=== PATIENT | female | born 1955 | race African-American/Black ===

== ENCOUNTER → 2017-01-03 | Outpatient (CLI) | payer OTHER ==
[~2017-01-03] MED LIST: AMLODIPINE BESY10 MG PO; ANASTROZOLE1 MG PO; APRESOLINE PO; ARTIFICIAL TEAR15 M3 OS; ASPIRIN PO; ASPIRIN81 MG PO; BENAZEPRIL PO; CLARITIN10 M1 PO; CLARITIN10 M2 PO; CLOPIDOGREL75 MG PO; DONEPEZIL HCL10 MG PO; FLAGYL PO; FLONASE 0.05% N16 G1; GLUCOPHAGE XR500 MG PO; HCTZ PO; HYDRALAZINE HCL50 MG PO; HYDROCHLOROTHIA25 MG PO; HYDROCODON-ACE1 EAC5 PO; K-DUR20 ME1 PO; KLOR-CON PO; LEVAQUIN PO; LIPITOR20 MG DOB; LIPITOR20 MG PO; LO-DOSE ASPIRIN81 M1 PO; LOPRESSOR PO; LORTAB 5/500 TA1 TA1 PO; LOTENSIN40 MG PO; METFORMIN HCL500 M1 PO; METOPROLOL TAR25 MG PO; METRONIDAZOLE PO; MOBIC15 MG PO; NORVASC10 MG PO; OMEPRAZOLE40 M1 PO; PREDNISONE PO; PRILOSEC PO; PRINIVIL20 M1 PO; SERTRALINE HCL50 M1 PO; TRAMADOL HCL50 M1 PO; VALCYTE450 MG PO; VENLAFAXINE HCL25 MG PO; VITAMIN C500 M7 PO; ZESTRIL40 MG PO; ZOCOR PO; ZOLOFT50 MG PO
--- NOTE | ~2017-01-03 | CT15 ---
[facility] A Service of [facility] & [facility] RADIOLOGY TEXT RESULTS PATIENT: PAULY BENITEZ LOCATION: CCAT : 54 UNIT #: [id number] AGE: [address]: Iglesia Gerardo MD SEX: F ORDER DR: [id number] [facility] [address] [place], [place] [address] [id number] O MR#: [id number] Acc #: [id number] NAME: PAULY BENITEZ : 1955 SEX: F STUDY DATE/TIME: 01/03/2017 11:32 UNIT: [facility] ROOM: STUDY DESCRIPTION: CT Angio Chest Attending Physician: Iglesia Gerardo M.D. Referring Physician: Iglesia Gerardo M.D. Ordering Physician: Iglesia Gerardo M.D. Primary Care Physician: Rizwana Phillip M.D. MEDICAL IMAGING REPORT This report is preliminary unless electronic signature is present EXAM CT angiogram chest, 01/03/2017 INDICATION Aortic aneurysm surgery in 2016. The patient denies any complaints a the current time. TECHNIQUE Axial CT images were obtained from the thoracic inlet through the dome of the diaphragm following the administration of intravenous contrast material. Following this 3-D reformatted images were obtained. This CT exam was performed with one or more of the following radiation dose reduction techniques: automatic exposure control, adjustment of mA and/or kV according to patient size, and iterative reconstruction. FINDINGS Comparison is made to prior study from . A thoracic aortic stent graft is seen. This extends from just distal to the common origin of the left common carotid artery and brachiocephalic artery and continues into the mid descending thoracic aorta. I do not see any convincing evidence of endoleak. 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 There is a patent left common carotid to left subclavian artery bypass. The patient has generalized arteriomegaly involving the arch vessels. Ascending thoracic aorta measures within normal size limits as does the aortic root and the descending thoracic aorta distal to the stent. I do not see any evidence of dissection on today's study. The thyroid gland and trachea appear within normal limits. There is a small hiatal hernia. There is no pleural or pericardial effusion. Mediastinal lymph nodes do not appear pathologically enlarged. There are background emphysematous changes. Scarring at the right lung [facility]. [facility] A Service of [facility] & [facility] RADIOLOGY TEXT RESULTS PATIENT: PAULY BENITEZ LOCATION: [facility] : 54 UNIT #: [id number] AGE: [address]: Iglesia Gerardo MD SEX: F ORDER DR: rupal is stable however, there is a nodular density seen within the left lower lobe which I do not clearly identified on the prior study from December 2015. It measures up to 1.0 cm x 0.9 cm. Given background emphysematous changes I would suggest short-term CT followup in 3 months or consideration for PET. No acute pulmonary thromboembolus is seen. Images through the upper abdomen do not demonstrate any acute abnormalities. Tiny low-attenuation lesion within the right kidney is favored to represent a cyst. Review of bony windows does not demonstrate any aggressive osseous abnormalities. This patient is status post left mastectomy. IMPRESSION 1. Patient is status post thoracic aortic stent grafting which extends from just distal to the common trunk for the left common carotid artery and innominate artery into the proximal to mid descending thoracic aorta. There is no evidence of endoleak and there is no evidence of dissection. The patient's aortic root, ascending thoracic aorta and distal descending thoracic aorta measure within normal size limits. 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 2. Background emphysematous changes. Patient does have a nodular density, within the left lower lobe measuring up to 1.0 cm x 0.9 cm. This is indeterminate in the setting of a patient with background emphysematous changes and may simply reflect some benign scarring but I would suggest either short-term CT followup in 3 months or consideration for PET scan. 3. Small hiatal hernia. 4. Also noted but not mentioned in the report is a replaced left hepatic artery to the left gastric artery which is a normal anatomic variant. Please see the body of the report for any other additional incidental findings. Dictated by... Krystal Blake M.D. THIS IS AN ELECTRONICALLY VERIFIED REPORT Krystal Blake M.D. at 01/04/2017 4:47 PM AFF/ljd TD: 01/03/2017 21:53 JOB #: [id number] MEDICAL IMAGING REPORT [facility] A Service of [facility] & [facility] RADIOLOGY TEXT RESULTS PATIENT: PAULY BENITEZ LOCATION: [facility] : 54 UNIT #: [id number] AGE: [address]: Iglesia Gerardo MD SEX: F ORDER DR: COPY
[2017-01-03 10:44] LABS: BLOOD UREA NITROGEN 10 mg/dL (9-23); CREATININE SERUM 0.7 mg/dL (0.6-1.4); GLOM FILT RATE Estimated ABOVE60 mL/min (>60)
== END | disposition home or self-care (01) ==
LOC: CCAT 09:33
PROVIDERS: Surgery Vascular Surgery
DX: I71.2 Thoracic aortic aneurysm, without rupture (principal); I65.23 Occlusion and stenosis of bilateral carotid arteries; I63.9 Cerebral infarction, unspecified; I77.89 Other specified disorders of arteries and arterioles; E11.9 Type 2 diabetes mellitus without complications; I10 Essential (primary) hypertension; J43.9 Emphysema, unspecified; K44.9 Diaphragmatic hernia without obstruction or gangrene; Z98.890 Other specified postprocedural states
CPT/HCPCS: 36415; 71275; 82565; 84520; Q9967

== ENCOUNTER 2017-04-16 17:17 | Inpatient (IN) | payer OTHER ==
--- NOTE | ~2017-04-16 | HP ---
Unit #: [id number] #: [id number] Patient: PAULY BENITEZ [id number] [address] [place], [place] [address] [id number] I MR#: [id number] NAME: PAULY BENITEZ ROOM: 75513 Age: 61 Sex: F Admission Date: 04/16/2017 : 1955 Attending Physician: Nam Ness M.D. Primary Care Physician: Rizwana Phillip M.D. HISTORY AND PHYSICAL CHIEF COMPLAINT Diffuse abdominal pain. HISTORY OF PRESENT ILLNESS This is a 61-year-old female with past medical history of coronary artery disease with previous stent, hypertension, dyslipidemia, diabetes, GERD, history of left breast cancer with previous left mastectomy, anxiety depression, chronic left hip pain, anemia. She presented to the emergency room with chief complaint of diffuse abdominal pain which she said has been going off and on for two months, got worse today. She feels nauseous but no vomiting, no diarrhea, no constipation, no blood in the stool, no cough, no fevers, no chest pain, no diaphoresis, no palpitations. No other complaint. In the ER, on workup, she was found to have BUN 39, creatinine 2.7; white count 13,000; UA consistent with UTI. She is evaluation with CT scan which is pending at time of dictation. PAST MEDICAL HISTORY 1. History of coronary artery disease with previous stent. 2. Hypertension. 3. Dyslipidemia. 4. Diabetes. 5. GERD. 6. History of left breast cancer with previous left mastectomy. 7. Anemia. 8. History of anxiety and depression. 9. History of chronic left hip pain. PAST SURGICAL HISTORY 1. History of ventral hernia repair. 2. Left mastectomy. 3. Cardiac catheterization with stent. HOME MEDICATIONS 1. Plavix 75 mg daily. 2. Aricept 10 mg daily. 3. Omeprazole 40 mg daily. 4. Lopressor 50 mg b.i.d. 5. Glucophage 500 mg b.i.d. 6. Aspirin 81 mg daily. 7. Lipitor 20 mg daily. 8. Sertraline 50 mg daily. 9. Tramadol 50 mg q.6 h. p.r.n. 10. Amlodipine 10 mg h.s. 11. Anastrozole 1 mg daily. Unit #: [id number] #: [id number] Patient: PAULY BENITEZ SOCIAL HISTORY She does not smoke but she says she drinks 3 or 4 times a week. She is not drinking for one week. She denies any other illicit drug use. FAMILY HISTORY No family disease pertinent to case. PHYSICAL EXAMINATION VITAL SIGNS: Temperature 98.7, heart rate 96, respiratory rate 16, blood pressure 118/62, oxygen 100%. GENERAL: Middle-aged female lying in the bed, comfortably, currently not in any distress. She is alert, awake, oriented x3. HEENT: Pupils are equal and reactive to light and accommodation. Head is normocephalic, atraumatic. NECK: Supple. No JVD. LUNGS: Clear to auscultation bilaterally. No rhonchi, no wheezing. HEART: S1, S2. Regular rate and rhythm. ABDOMEN: Soft. No guarding, no rigidity. Diffuse mild tenderness. EXTREMITIES: Normal. No cyanosis, clubbing, or edema. NEUROLOGIC: No focal neurologic deficits. Cranial nerves II-XII intact. SKIN: Normal. No rash. PSYCHIATRIC: Normal mood and affect. DIAGNOSTIC STUDIES LABORATORY: Urine drug screen is negative. UA consistent with UTI, positive leukocyte esterase, wbc's 5-10. White count 13, hemoglobin 11, hematocrit 35, platelets 198. Sodium 133, potassium 3.7, chloride 94, CO2 is 28, glucose 121, BUN 39, creatinine 2.7, LFTs within normal limits. Lipase 34. Albumin 3.8. ASSESSMENT AND PLAN 1. Diffuse upper abdominal pain. CT scan is pending at time of dictation. Will follow up CT scan and further workup after CT scan evaluation. 2. Urinary tract infection. Will start the patient on IV Rocephin. 3. Acute kidney injury. Start on IV fluids. 4. History of coronary artery disease with previous stent. 5. Hypertension. 6. Dyslipidemia. 7. Diabetes. Hold metformin. Place on sliding scale. 8. History of gastroesophageal reflux disease. Will place the patient on IV Protonix while in the hospital. 9. History of left breast cancer with previous left mastectomy. 10. History of anemia. 11. Anxiety depression. 12. Chronic left head pain, unknown trauma. 13. DVT prophylaxis. Will place the patient on Lovenox. Dictated by Priyank Keita/james Unit #: [id number] #: [id number] Patient: PAULY BENITEZ TD: 04/16/2017 23:16 JOB #: [id number] HISTORY AND PHYSICAL Page 1 of 1 X X HISTORY AND PHYSICAL
--- NOTE | ~2017-04-16 | DS ---
Unit #: [id number] #: [id number] Patient: PAULY HINTON [id number] [address] [place], [place] [address] [id number] I MR#: [id number] NAME: PAULY HINTON ROOM: 318 Age: 61 Sex: F Admission Date: 04/16/2017 : 1955 Discharge Date: 04/19/2017 Attending Physician: Grecia Schmidt M.D. Primary Care Physician: Rizwana Phillip M.D. DISCHARGE SUMMARY PRINCIPAL DIAGNOSES 1. Sepsis secondary to acute diverticulitis. 2. Acute kidney injury, prerenal. Discharge creatinine 1.3. 3. Diabetes mellitus type 2. Noninsulin requiring, controlled. 4. Hypertension. 5. Depression. 6. History of breast cancer. 7. Hyperlipidemia. 8. Gastroesophageal reflux disease. 9. Coronary artery disease, status post prior stenting. 10. Chronic left hip pain. 11. Hypokalemia. CON[facility]ULT[facility]. DIAGNOSTIC DATA IMAGING: CT scan of the abdomen and pelvis on 04/16/2017 with acute diverticulitis. There was a large diverticulum projecting from the superior aspect of the sigmoid colon measuring 3.5 cm, associated with inflammatory changes of fat stranding, haziness as noted. There was no evidence of abscess or perforation. Constipation was noted. Nodular density in the left lung base measuring 2.4 cm x 7 mm. It was benign per PET scan in 12/2016. Anterior abdominal wall mesh is noted. Right inguinal hernia with fat without complication noted. CLINICAL HISTORY/HOSPITAL COURSE Ms. Hinton is a nice 61-year-old female who presented to the emergency department with complaints of abdominal pain. Please refer to history and physical for further details. The patient underwent CT of the abdomen and pelvis in the emergency department, revealing acute diverticulitis. This was found to be in association with an elevated white blood cell count of 13,000. The patient was also found to have a creatinine of 2.7. She was subsequently admitted. The patient was placed on empiric IV fluids and antibiotics. [facility] was consulted. With antibiotic therapy the patient remained afebrile and leukocytosis has resolved. Plan is for her to continue a diet at home and on an outpatient basis proceed with follow-up colonoscopy to further evaluate this large diverticulum. In regard to the patient's acute kidney injury, with IV fluids her creatinine has improved. She unfortunately has poor oral intake at home, which I think is contributing to this. I encouraged fluid intake at home. Unit #: [id number] #: [id number] Patient: PAULY HINTON The patient did have some electrolyte abnormalities, but these have been corrected during hospitalization. The patient does admit to significant poor appetite, somnolence and depression at home. I am going to increase her dose of Zoloft and this can be followed up by Dr. Rizwana Phillip as an outpatient. DISCHARGE CONDITION Stable. DISPOSITION Discharge to home. DISCHARGE MEDICATIONS 1. Flonase 0.05% nasal spray, 2 sprays per nostril daily. 2. Zoloft 100 mg daily. 3. Metformin XR 500 mg b.i.d. 4. Anastrozole 1 mg daily. 5. Norvasc 10 mg at bedtime. 6. Metoprolol tartrate 50 mg b.i.d. 7. Donepezil 10 mg daily. 8. Lipitor 20 mg at bedtime. 9. Flagyl 500 mg p.o. t.i.d. for 7 days. 10. Aspirin 81 mg daily. 11. Tramadol 50 mg p.o. q.6 h. p.r.n. pain. 12. Plavix 75 mg daily. 13. Omeprazole 40 mg daily. 14. Levaquin 500 mg p.o. daily for 7 days. DIET The patient was instructed to follow a heart healthy diet. She should monitor her carbohydrate intake as well. She can continue Accu-Cheks as she was doing at home previously. ACTIVITY Increase as tolerated. FOLLOWUP The patient should follow up with Dr. Rizwana Phillip in four weeks and reevaluate depression. I would recommend follow-up BMP at that time to evaluate renal function and potassium. Dictated by... Grecia Schmidt M.D. Alanna TD: 04/20/2017 10:15 JOB #: [id number] Unit #: [id number] #: [id number] Patient: PAULY HINTON DISCHARGE SUMMARY Page 1 of 1 X Grecia Schmidt MD DISCHARGE SUMMARY
--- NOTE | ~2017-04-16 | CT4 ---
[facility] A Service of [facility] & [facility] RADIOLOGY TEXT RESULTS PATIENT: PAULY BENITEZ LOCATION: C3A 318- : 53 UNIT #: [id number] AGE: [address]: Grecia Schmidt MD SEX: F ORDER DR: [id number] [facility] [address] [place], [place] [address] [id number] I MR#: [id number] Acc #: [id number] NAME: PAULY BENITEZ : 1955 SEX: F STUDY DATE/TIME: 04/16/2017 20:21 UNIT: C3A PCU ROOM: 318 STUDY DESCRIPTION: CT Abd and Pelv Wo Cont Attending Physician: Grecia Schmidt M.D. Ordering Physician: Kaylene Shah M.D. Primary Care Physician: Rizwana Phillip M.D. MEDICAL IMAGING REPORT This report is preliminary unless electronic signature is present EXAM CT abdomen and pelvis, 04/16/2017 HISTORY Abdomen pain generalized 1-2 months per patient. Denies nausea, vomiting, diarrhea. Prior history of breast cancer 2013. Hypertension, diabetes, seizures. Left mastectomy, abdominal hernia. Esophageal surgery. TECHNIQUE CT abdomen and pelvis performed without administration of oral or vascular contrast. This CT exam was performed with one or more of the following radiation dose reduction techniques: automatic exposure control, adjustment of mA and/or kV according to patient size, and iterative reconstruction. COMPARISON Images from CT/PET scan, 02/07/2017 FINDINGS There is evidence of prior right rib resection with some herniation of pulmonary parenchyma. Associated subpleural scarring at this location. Please correlate with surgical history. At the left lung base there is a somewhat linear, somewhat nodular density measuring approximately 2.4 cm x 7.0 mm. Given differences in imaging technique, probably not significantly changed from prior CT/PET scan. It did not show abnormal PET tracer accumulation on the prior CT/PET scan. It does appear more pronounced than on prior CT of the chest in December 2016 when it measured about 1.7 cm x 9.0 mm. Given lack of FDG affinity on the CT/PET scan, this is probably a benign process but I would recommend continued short-interval followup in approximately 3 months. Heart normal in size. Coronary arterial calcifications. The liver, gallbladder, spleen, pancreas, adrenal glands, kidneys unremarkable. [facility] A Service of [facility] & [facility] RADIOLOGY TEXT RESULTS PATIENT: PAULY BENITEZ LOCATION: C3A 318-01 : 53 UNIT #: [id number] AGE: [address]: Grecia Schmidt MD SEX: F ORDER DR: CT PELVIS: No inguinal adenopathy. Right inguinal hernia containing only fat without complication. Urinary bladder, uterus adnexal regions notable for calcified fibroid in the uterus. No free fluid in the pelvis. There are small lymph nodes adjacent to the sigmoid colon and in the retroperitoneum likely reactive in nature. Small hiatal hernia. Remainder of visualized stomach unremarkable. Small bowel remarkable. Appendix normal. The colon shows moderate stool burden throughout its course. Extensive sigmoid diverticulosis. There is a giant diverticulum along the superior aspect of the mid sigmoid colon. It measures approximately 3.5 cm x 3.1 cm x 3.1 cm. There is inflammatory fat stranding and haziness adjacent to this diverticulum. It has increased in size from the prior CT/PET scan when it measured 2.3 cm in diameter. Inflammatory change has increased. Findings are most consistent with acute sigmoid diverticulitis. I see no free air. No abscess or drainable fluid collection. Consider surgical consultation given progression of this abnormality in the interval from February 2017. There is no colonic obstruction. There appears to be some mild mural thickening in the subjacent sigmoid colon. Please note the normal appendix rests immediately anterior to the inflamed giant diverticulum. Anterior abdominal wall mesh unchanged. There is a fat-containing hernia along the right superolateral aspect of the mesh. No complication. Atherosclerotic arterial calcifications. Degenerative bony changes. No acute abnormality. IMPRESSION 1. Findings most consistent with acute diverticulitis. There is a giant diverticulum projecting from the superior aspect of the sigmoid colon measuring up to 3.5 cm in diameter. Significantly increased in size from February 2017 when it measured about 2.3 cm in diameter. Increased diverticular inflammatory change with fat stranding and haziness in the adjacent perisigmoidal fat. The adjacent sigmoid colon shows mild mural thickening. Given progression of abnormality, surgical consultation is recommended. There is no free air. There is no drainable fluid collection or abscess suggested. Extensive sigmoid diverticulosis elsewhere. Moderate stool burden throughout the colon. 2. Appendix is normal. The normal appendix is located along the anterior aspect of the inflamed giant sigmoid diverticulum. 3. Somewhat linear somewhat nodular density at the left lung base measures 2.4 cm x 7.0 mm. While probably not significantly changed from prior CT/PET scan, it is increased in size from December 2016. It did not show FDG avidity on CT/PET scan. This would favor benign process but given slow progression of increased size, continued CT followup in 3 months is recommended. 4. Stable postoperative changes right lower thorax. See above. 5. Anterior abdominal wall mesh. Stable residual hernia along the right superolateral aspect of the mesh containing only fat without complication. 6. Right inguinal hernia containing fat without complication. 7. Not mentioned above, atherosclerotic arterial calcifications. No STS. [facility] A Service of [facility] RADIOLOGY TEXT RESULTS PATIENT: PAULY BENITEZ LOCATION: C3A 318-01 : 53 UNIT #: [id number] AGE: [address]: Grecia Schmidt MD SEX: F ORDER DR: aortic aneurysm. Dictated by... Tone Rodriguez M.D. THIS IS AN ELECTRONICALLY VERIFIED REPORT Tone Rodriguez M.D. at 04/18/2017 5:16 PM Shanika TD: 04/17/2017 08:43 JOB #: [id number] MEDICAL IMAGING REPORT Page 1 of 1 COPY
--- NOTE | ~2017-04-16 | CO ---
Unit #: [id number] #: [id number] Patient: PAULY BENITEZ [id number] [facility]. [place], [place] [address] [id number] I MR#: [id number] NAME: PAULY BENITEZ ROOM: 318 Age: 61 Sex: F Admission Date: 04/16/2017 : 1955 Attending Physician: Grecia Schmidt M.D. Primary Care Physician: Rizwana Phillip M.D. Consultation Date: 04/17/2017 CONSULTATION REPORT BRIEF SUMMARY The patient is a 61-year-old black female, who presented through the emergency room complaining of severe central abdominal pain. It is a question of whether she may have some diarrhea. She states this has been going on for several months, but over the past week had gotten very significant, bringing her to the emergency room. She is not a very good historian and apparently has some mental problems, possibly Alzheimer disease. She is on Aricept with multiple other medications. The patient has known past history for left breast cancer with left mastectomy several years ago. She has had no evidence of any recurrence. She has also had coronary artery disease with stent placed, hypertension, diabetes, gastroesophageal reflux disease, chronic hip pain. According to her, her weight stable. She also has known past history for anemia. She is on numerous medications, but no anticoagulation. FAMILY HISTORY Noncontributory. SOCIAL HISTORY The patient is single, nonsmoker, nondrinker. IMMUNIZATIONS Up-to-date. REVIEW OF SYSTEMS Ten system review has been performed on review of systems and it is not remarkable except for that noted in the present illness. PHYSICAL EXAMINATION VITAL SIGNS: The patient on admission afebrile, pulse 92. Vital signs normal. HEENT: Not remarkable. NECK: Supple. CHEST: There is equal bilateral expansion with bilateral equal breath sounds. LUNGS: Clear bilaterally. HEART: Regular rhythm without murmurs or gallops. There is no evidence of cardiomegaly clinically. ABDOMEN: Soft, mildly tender in the central portion of the abdomen with some mild distention. There is no guarding or rebound. Active bowel sounds present. No evidence of ascites or hernias. EXTREMITIES: Full range of motion without limitation. There is no evidence of peripheral edema. BACK: There is no CVA tenderness. Unit #: [id number] #: [id number] Patient: PAULY BENITEZ NEUROLOGIC: Grossly intact except the patient seems slightly confused possibly on the basis of her pain medicine. DIAGNOSTIC STUDIES LABORATORY RESULTS: White blood cell count was elevated at 13,000 on admission. IMAGING STUDIES: CT scan apparently showed acute diverticulitis, although, the reports not in the chart. IMPRESSION The patient has acute diverticulitis, which suggest IV antibiotics and observation and eventually, she will need a colonoscopy. Dictated by... Brady Briggs Jr., MBishop. ANYI/iam TD: 04/17/2017 06:58 JOB #: [id number] CONSULTATION REPORT Page 1 of 1 X Brady Briggs MD X CONSULTATION REPORT
[~2017-04-16 17:17] MED LIST changes: -AMLODIPINE BESY10 MG PO; -ASPIRIN81 MG PO; -CLOPIDOGREL75 MG PO; -DONEPEZIL HCL10 MG PO; -FLAGYL PO; -FLONASE 0.05% N16 G1; -GLUCOPHAGE XR500 MG PO; -LEVAQUIN PO; -LIPITOR20 MG PO; -METFORMIN HCL500 M1 PO; -OMEPRAZOLE40 M1 PO; -SERTRALINE HCL50 M1 PO; -TRAMADOL HCL50 M1 PO
[2017-04-16 18:52] LABS: BASOPHIL% 0.2 % (0-2.5); EOSINOPHIL# 0.2 X10e3 (0-0.7); EOSINOPHIL% 1.8 % (0.0-7.0); HEMATOCRIT 35.2 % (35.0-45.0); HEMOGLOBIN 11.8 gm/dL (12.0-16.0); LYMPHOCYTE# 1.6 X10e3 (1.0-3.5); LYMPHOCYTE% 11.9 % (17.0-45.0); MEAN CORPUSCULAR HEMOGLOBIN 31.4 PG (28-34); MEAN CORPUSCULAR HGB CONC 33.4 g/dL (30-36); MEAN PLATELET VOLUME 8.1 FL (6.5-11.5); MONOCYTE% 7.6 % (3.0-12.0); NEUTROPHIL# 10.7 X10e3 (1.5-7.1); NEUTROPHIL% 78.5 % (40-75); RED BLOOD COUNT 3.75 X10e (3.90-5.30); RED CELL DISTRIBUTION WIDTH 13.3 % (11.0-15.5); WHITE BLOOD COUNT 13.6 X10e3 (4.0-10.5)
[2017-04-16 19:01] LABS: ALBUMIN SERUM 3.8 g/dL (3.5-5.0); BILIRUBIN, DIRECT 0.1 mg/dL (0.0-0.2); BILIRUBIN,INDIRECT 0.8 mg/dL (0.0-0.9); BILIRUBIN,TOTAL 0.9 mg/dL (0.2-2.0); BUN/CREATININE RATIO 14.44; CALCIUM SERUM 9.2 mg/dL (8.4-10.2); CREATININE SERUM 2.7 mg/dL (0.6-1.4); POTASSIUM 3.7 mmol/L (3.5-5.1); PROTEIN TOTAL SERUM 8.4 g/dL (6.0-8.3)
[2017-04-16 19:14] LABS: PLATELET COUNT 198 X10e3 (140-420)
[2017-04-16 19:15] LABS: DIFF IND YES
[2017-04-16 19:21] LABS: PLATELET ESTIMATE NORMAL (NORMAL); RBC NORMAL YES
[2017-04-16 21:13] LABS: URINE SOURCE CLEAN CATCH
[2017-04-16 21:20] LABS: URINE APPEARANCE CLEAR; URINE BILIRUBIN NEG (NEG); URINE BLOOD NEG (NEG); URINE COLOR YELLOW; URINE GLUCOSE NEG (NEG); URINE KETONE TRACE (NEG); URINE LEUKOCYTE ESTERASE 1+ (NEG); URINE NITRATE NEG (NEG); URINE PROTEIN TRACE (NEG); URINE SPECIFIC GRAVITY 1.018 (1.003-1.035); URINE UROBILINOGEN 0.2 MG/DL (NEG)
[2017-04-16 21:21] LABS: CULTURE INDICATED? YES; URINE BACTERIA AUWI NEG (NEGATIVE); URINE SQUAMOUS EPITHELIAL CELL OCC /[HPF]
[2017-04-16 21:40] LABS: AMPHETAMINE NEG (NEG); BARBITURATES NEG (NEG); BENZODIAZEPINES NEG (NEG); COCAINE NEG (NEG); MARIJUANA NEG (NEG); OPIATES NEG (NEG); TRICYCLIC ANTIDEPRESSANTS NEG (NEG); U METHADONE NEG (NEG)
[2017-04-16] MEDS ORDERED: CLOPIDOGREL75 MG PO (21:52)
[2017-04-16] MEDS ORDERED: METFORMIN HCL500 M1 PO (21:53)
[2017-04-16] MEDS ORDERED: OMEPRAZOLE40 M1 PO (21:53)
[2017-04-16] MEDS ORDERED: DONEPEZIL HCL10 MG PO (21:53)
[2017-04-16] MEDS ORDERED: ASPIRIN81 MG PO (21:54)
[2017-04-16] MEDS ORDERED: LOPRESSOR PO (21:54)
[2017-04-16] MEDS ORDERED: GLUCOPHAGE XR500 MG PO (21:54)
[2017-04-16] MEDS ORDERED: LIPITOR20 MG PO (21:55)
[2017-04-16] MEDS ORDERED: TRAMADOL HCL50 M1 PO (21:55)
[2017-04-16] MEDS ORDERED: SERTRALINE HCL50 M1 PO (21:55)
[2017-04-16] MEDS ORDERED: AMLODIPINE BESY10 MG PO (21:56)
[2017-04-16] MEDS ORDERED: ANASTROZOLE1 MG PO (21:56)
[2017-04-17 06:59] LABS: BASOPHIL% 0.2 % (0-2.5); EOSINOPHIL# 0.1 X10e3 (0-0.7); EOSINOPHIL% 1.9 % (0.0-7.0); HEMATOCRIT 32.3 % (35.0-45.0); LYMPHOCYTE# 0.9 X10e3 (1.0-3.5); LYMPHOCYTE% 11.1 % (17.0-45.0); MEAN CELL VOLUME 92.4 FL (83-96); MEAN CORPUSCULAR HEMOGLOBIN 31.3 PG (28-34); MEAN CORPUSCULAR HGB CONC 33.9 g/dL (30-36); MONOCYTE# 0.6 X10e3 (0-1.0); MONOCYTE% 8.3 % (3.0-12.0); NEUTROPHIL# 6.2 X10e3 (1.5-7.1); NEUTROPHIL% 78.5 % (40-75); PLATELET COUNT 171 X10e3 (140-420); RED CELL DISTRIBUTION WIDTH 13.3 % (11.0-15.5); WHITE BLOOD COUNT 7.8 X10e3 (4.0-10.5)
[2017-04-17 07:09] LABS: DIFF IND NO
[2017-04-17 07:13] LABS: BUN/CREATININE RATIO 14.78; CALCIUM SERUM 8.8 mg/dL (8.4-10.2); CREATININE SERUM 2.3 mg/dL (0.6-1.4); GLOM FILT RATE Estimated 25.6 mL/min (>60); POTASSIUM 3.4 mmol/L (3.5-5.1)
[2017-04-18 05:22] LABS: HEMATOCRIT 34.7 % (35.0-45.0); HEMOGLOBIN 11.8 gm/dL (12.0-16.0); MEAN CELL VOLUME 92.1 FL (83-96); MEAN CORPUSCULAR HEMOGLOBIN 31.3 PG (28-34); MEAN PLATELET VOLUME 7.7 FL (6.5-11.5); RED BLOOD COUNT 3.77 X10e (3.90-5.30); RED CELL DISTRIBUTION WIDTH 13.7 % (11.0-15.5); WHITE BLOOD COUNT 8.1 X10e3 (4.0-10.5)
[2017-04-18 07:27] LABS: ALBUMIN SERUM 3.3 g/dL (3.5-5.0); BILIRUBIN,TOTAL 0.8 mg/dL (0.2-2.0); BUN/CREATININE RATIO 14.11; CALCIUM SERUM 8.6 mg/dL (8.4-10.2); CREATININE SERUM 1.7 mg/dL (0.6-1.4); GLOM FILT RATE Estimated 36.8 mL/min (>60); POTASSIUM 4.1 mmol/L (3.5-5.1); PROTEIN TOTAL SERUM 7.4 g/dL (6.0-8.3)
[2017-04-19 07:17] LABS: BUN/CREATININE RATIO 12.3; CALCIUM SERUM 8.7 mg/dL (8.4-10.2); CREATININE SERUM 1.3 mg/dL (0.6-1.4); GLOM FILT RATE Estimated 50.9 mL/min (>60); POTASSIUM 3.3 mmol/L (3.5-5.1)
[2017-04-19] MEDS ORDERED: FLONASE 0.05% N16 G1 (13:27)
[2017-04-19] MEDS ORDERED: LEVAQUIN PO (13:29)
[2017-04-19] MEDS ORDERED: FLAGYL PO (13:29)
== END 2017-04-19 14:23 | disposition home or self-care (01) | DRG 872 ==
LOC: CED 17:17 → CEDOF 22:00 → C3A PCU 22:00 → CEDOF 23:05 → CED 23:05 → C3A PCU 23:05 → CEDOF 04-17 00:19 → C3A PCU 04-17 00:19
PROVIDERS: Internal Medicine; Student in an Organized Health Care Education/Training Program
DX: A41.9 Sepsis, unspecified organism (principal); N17.9 Acute kidney failure, unspecified; K57.32 Diverticulitis of large intestine without perforation or abscess without bleeding; N39.0 Urinary tract infection, site not specified; E11.9 Type 2 diabetes mellitus without complications; I10 Essential (primary) hypertension; F32.9 Major depressive disorder, single episode, unspecified; Z85.3 Personal history of malignant neoplasm of breast; E78.5 Hyperlipidemia, unspecified; K21.9 Gastro-esophageal reflux disease without esophagitis; I25.10 Atherosclerotic heart disease of native coronary artery without angina pectoris; Z95.5 Presence of coronary angioplasty implant and graft; E87.6 Hypokalemia; M25.552 Pain in left hip; K59.00 Constipation, unspecified; F41.9 Anxiety disorder, unspecified; Z79.82 Long term (current) use of aspirin; Z79.02 Long term (current) use of antithrombotics/antiplatelets; Z79.84 Long term (current) use of oral hypoglycemic drugs; G89.29 Other chronic pain
CPT/HCPCS: 36415; 74176; 80048; 80053; 80076; 80307; 81003; 82947; 83690; 84132; 85025; 85027; 87086; 97165; 99285; C9113; J1650; J1956; J2405

== ENCOUNTER → 2017-06-22 | Outpatient (CLI) | payer OTHER ==
[~2017-06-22] MED LIST changes: +AMLODIPINE BESY10 MG PO; +ASPIRIN81 MG PO; +CLOPIDOGREL75 MG PO; +DONEPEZIL HCL10 MG PO; +FLAGYL PO; +FLONASE 0.05% N16 G1; +GLUCOPHAGE XR500 MG PO; +LEVAQUIN PO; +LIPITOR20 MG PO; +METFORMIN HCL500 M1 PO; +OMEPRAZOLE40 M1 PO; +SERTRALINE HCL50 M1 PO; +TRAMADOL HCL50 M1 PO
--- NOTE | ~2017-06-22 | CT57 ---
[facility] A Service of [facility] & [facility] RADIOLOGY TEXT RESULTS PATIENT: PAULY BENITEZ LOCATION: [facility] : 53 UNIT #: [id number] AGE: [address]: Jakob Manjarrez MD SEX: F ORDER DR: [id number] [facility] [address] [place], [place] [address] [id number] O MR#: [id number] [facility] #: [id number] NAME: PAULY BENITEZ : 1955 SEX: F STUDY DATE/TIME: 06/22/2017 13:16 UNIT: [facility] ROOM: STUDY DESCRIPTION: CT Chest Wo Cont Attending Physician: Jakob Manjarrez M.D. Referring Physician: Jakob Manjarrez M.D. Ordering Physician: Jakob Manjarrez M.D. Primary Care Physician: Rizwana Phillip M.D. MEDICAL IMAGING REPORT This report is preliminary unless electronic signature is present EXAMINATION CT chest without contrast. DATE 06/22/2017 HISTORY 61-year-old female with left lower lobe lung nodule. Follow up. Cough with intermittent shortness of breath for 2 weeks. History of breast cancer with left mastectomy. History of heart disease. COMPARISON CT chest, 01/01/2016, 02/21/2011, 09/25/2015, PET/CT 02/14/2017. PROCEDURE 2 mm axial images through the chest without contrast. Sagittal and coronal reformatted images were obtained. This CT exam was performed with one or more of the following radiation dose reduction techniques: automatic exposure control, adjustment of mA and/or kV according to patient size, and iterative reconstruction. FINDINGS 0.9 x 0.9 cm noncalcified nodular density in the subpleural left lower lobe posteromedially in the region of the costophrenic angle appears unchanged in size and morphology compared to the CT chest of 01/02/2017. There is a new finding when compared to the CT chest from 01/01/2016. It demonstrated no abnormal FDG uptake on the previous PET/CT. There is focal lung herniation in the posterolateral right hemithorax, between the right eighth and ninth ribs, with subpleural scarring, unchanged from 01/01/2016. Mild emphysematous changes are present. No acute airspace disease is identified. [facility] A Service of [facility] & [facility] RADIOLOGY TEXT RESULTS PATIENT: PAULY BENITEZ LOCATION: [facility] : 53 UNIT #: [id number] AGE: [address]: Jakob Manjarrez MD SEX: F ORDER DR: Stent graft is seen within the transverse aorta just past the takeoff of the left subclavian artery extending into the mid descending segment. It appears unchanged in position. The distal transverse or proximal descending thoracic aorta is mildly aneurysmal measuring 3.4 cm. The proximal descending thoracic aorta is ectatic at 2.8 cm. Ascending thoracic aorta is tortuous. Coronary artery calcifications are present. No pericardial effusion, pleural effusion or pathologic adenopathy is identified. Multiple surgical clips are seen within the left lower neck. Liver is steatotic. Remainder of the included upper abdominal organs are within normal limits. IMPRESSION 1. 9 x 9 mm noncalcified nodular density in the medial left lower lobe is unchanged from the CT chest of 01/03/2017, and demonstrated no abnormal FDG accumulation on the previous PET/CT. Benign etiology such as an area of scarring or fibrosis is favored. Continued attention at surveillance imaging is recommended. 2. No acute airspace disease. 3. Focal lung herniation on the right posterolaterally with subpleural scarring, unchanged. 4. 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 5. Coronary artery calcifications. Please correlate cardiac history. 6. Not included in the body of the report, there is a small esophageal hiatal hernia. 7. Mild hepatic steatosis. Dictated by... Ashlee Robb M.D. THIS IS AN ELECTRONICALLY VERIFIED REPORT Ashlee Robb M.D. at 06/23/2017 2:21 PM [place] TD: 06/22/2017 23:54 JOB #: [id number] MEDICAL IMAGING REPORT Page 1 of 1 COPY
== END | disposition home or self-care (01) ==
LOC: CCAT 12:57
DX: R91.1 Solitary pulmonary nodule (principal); J98.4 Other disorders of lung; I25.10 Atherosclerotic heart disease of native coronary artery without angina pectoris; K76.0 Fatty (change of) liver, not elsewhere classified; Z98.890 Other specified postprocedural states
CPT/HCPCS: 71250